=== PATIENT | female | born 1970 | race Caucasian/White ===

== ENCOUNTER → 2016-07-05 | Outpatient (CLI) | payer OTHER ==
--- NOTE | 2016-07-05 09:07 | MA ---
Screening Digital Mammogram With iCAD Analysis Clinical Indications: Routine screening. Technique: Standard cephalocaudal and mediolateral oblique projections are obtained. This examination is processed by the iCAD computer aided detection system. Comparison: April 2013. Breast density: Type B; Scattered fibroglandular densities. Findings: CAD was reviewed. Is a possible developing nodular asymmetry in the lower outer right breas t. No suspicious microcalcifications are seen. The left breast is stable in appearance. Impression: Possible developing right breast asymmetry requires further evaluation, BI-RADS 0. Recommendation: Spot compression assessment of the right breast with ultrasound suggested if the abno rmality persists on diagnostic evaluation. [facility] will send a result letter to the patient. Negative mammography should not preclude additional workup of a clinically suspicious finding. The patient's information is entered into a reminder system with a target due date for her next mammo gram.
== END ==
LOC: CIMAGING 07:13
DX: Z12.31 Encounter for screening mammogram for malignant neoplasm of breast (principal)
CPT/HCPCS: G0202

== ENCOUNTER → 2016-07-14 | Outpatient (CLI) | payer OTHER ==
--- NOTE | 2016-07-14 13:52 | MA ---
Right Diagnostic Digital Mammogram with iCAD Clinical Indications: Asymmetric density on recent screening mammogram. Technique: Digital spot compression CC, spot mediolateral oblique and true lateral views. This exami nation was processed by the iCAD computer-aided detection system. Comparison: Recent mammogram. June 2016, April 2013. Breast Density: C, 50-75%. Findings: Previous asymmetric density identified is less conspicuous on the additional views. Althoug h this may represent overlapping breast parenchyma, there is moderately dense parenchymal pattern and therefore additional imaging with ultrasound is recommended. Impression: ACR BI-RADS 0: Needs further imaging. Recommendation: Ultrasound of the right breast which will be subsequently performed. Please see ultra sound report and recommendations. [facility] will send a result letter to the patient. Findings and recommendations have been discussed with the patient who agrees with the plan.
--- NOTE | 2016-07-14 14:10 | US ---
Ultrasound right Breast History: Nodular parenchymal lower outer quadrant of the right breast on mammogram. Comparison: Prior mammograms most recent from today. Technique: Ultrasound imaging of the lower outer quadrant of the right breast from the 6 to the 9 o'c lock position was performed by the associate medical director and me. Findings: No ultrasound evidence of dominant solid or cystic lesion in the right breast lower outer q uadrant. Normal retroareolar ducts. No suspicious findings on mammography or ultrasound. Mammogram an d ultrasound are consistent with normal overlapping breast parenchyma. Impression: 1. BI-RADS 1: Negative ultrasound of the right breast. 2. No ultrasound evidence of dominant solid or cystic lesion in the right breast lower outer quadrant . 3. Recommend annual screening mammograms with next mammogram in June 2017. Findings and recommendations have been discussed with the patient who agrees with the plan.
== END ==
LOC: CIMAGING 13:02
PROVIDERS: ATTEND Family Medicine
DX: Z12.39 Encounter for other screening for malignant neoplasm of breast (principal); R92.2 Inconclusive mammogram
CPT/HCPCS: 76641-PO; G0206

== ENCOUNTER → 2017-10-04 | Outpatient (CLI) | payer OTHER | LOC: CIMAGING 10:46 | PROVIDERS: ATTEND Family Medicine | DX: Z12.31 Encounter for screening mammogram for malignant neoplasm of breast (principal) ==

== ENCOUNTER → 2017-10-06 | Outpatient (CLI) | payer OTHER | LOC: BRMIMAGING 09:25 | PROVIDERS: ATTEND Family Medicine | DX: R92.8 Other abnormal and inconclusive findings on diagnostic imaging of breast (principal) | CPT/HCPCS: 76641-PO ==